=== PATIENT | male | born 1960 | race African-American/Black ===

== ENCOUNTER 2018-07-13 12:28 | Emergency (ER) | payer MEDICARE, OTHER ==
[~2018-07-13] VITALS: Wt 68.1 kg
[~2018-07-13 12:28] MED LIST: ACET1TAB40 PO; ASPI-831 PO; ATOR20TA38 PO; CIPR500T4 PO; CYCL10TA7 PO; DICY20TA59 PO; HYDR-3498 PO; HYDR-4011 PO; LANT3I SC; LEVE-5 PO; META-121 PO; METR500T PO; NOVO3I SC; ONDA4TAB35 PO
[2018-07-13 12:30] VITALS: BP 143/84; PULSE 120; RESP 17
== END 2018-07-13 14:39 | disposition left against medical advice (07) ==
LOC: E/R 12:28
DX: Z53.21 Procedure and treatment not carried out due to patient leaving prior to being seen by health care provider (principal)
CPT/HCPCS: 93005